=== PATIENT | male | born 1980 | race African-American/Black ===

== ENCOUNTER 2016-12-31 00:58 | Emergency (ER) | payer OTHER, SELFPAY ==
[2016-12-31 03:05] LABS: #Basophils 0.1 thou/uL (0.0-0.2); #Eosinphils 0.5 thou/uL (0.0-0.7); #Lymphocytes 1.8 thou/uL (1.20-3.40); #Monocytes 0.4 thou/uL (0.11-0.59); #Neutrophils 3.4 thou/uL (1.40-6.50); %Eosinophils 8.5 % (0.0-10.0); %Lymphocytes 29.2 % (21.0-51.0); Hematocrit 46.9 % (42.0-52.0); Mean Platelet Volume 8.2 fL (7.4-10.4); Red Blood Cell (RBC) Count 4.98 mill/uL (4.70-6.10); White Blood Cell (WBC) Count 6.2 thou/uL (4.8-10.8)
[2016-12-31 03:18] LABS: Bilirubin Negative (Negative); Blood, Urine Negative (Negative); Glucose, Urine (Dipstick) Negative (Negative); Ketone, Urine Negative (Negative); Nitrite Negative (Negative); Protein, Urine (Dipstick) Negative (Neg-Trace); Urobilinogen 0.2 mg/dL (0.2-1.0)
[2016-12-31 03:18] LABS: Acetaminophen Less than 6.0 mcg/mL (10.0-30.0); Salicylate Less than 8.0 mg/dL (15.0-30.0)
[2016-12-31 03:21] LABS: Bacteria/HPF None Seen HPF (None Seen); Hyaline Casts/LPF 0-3 HYALINE CAST LPF (0-3 Hyaline); RBC/HPF None Seen HPF (0-3); Squamous Epithelial None Seen HPF (0-3); WBC/HPF 0-3 HPF (0-3)
[2016-12-31 03:22] LABS: Troponin I Less than 0.010 ng/mL (< 0.028)
[2016-12-31 03:24] LABS: ALT (SGPT) 9 U/L (8-55); AST (SGOT) 12 U/L (5-34); Alkaline Phosphatase 53 U/L (40-150); Anion Gap 11 mmol/L (10-20); BUN (Urea Nitrogen) 10 mg/dL (8.9-20.6); Bilirubin, Total 1.2 mg/dL (0.2-1.2); CK (CPK) 93 U/L (30-200); Calc. Creatinine Clearance 0 mL/min (70-130); Calcium 8.8 mg/dL (7.8-10.44); Carbon Dioxide 25 mmol/L (22-29); Chloride 107 mmol/L (98-107); Estimated GFR-MDRD 87; Globulin 2.8 g/dL (2.4-3.5); Protein, Total 6.4 g/dL (6.0-8.3)
[2016-12-31 03:34] LABS: Methamphetamine Not Detected (NotDetected)
[2016-12-31 03:35] LABS: Amphetamine Not Detected (NotDetected); Methadone Not Detected (NotDetected)
--- NOTE | 2016-12-31 08:41 | RAD ---
RADIOGRAPH CHEST 1 VIEW: HISTORY: 36-year-old male with dizziness and near syncope. FINDINGS: The visualized lung suh are clear. The cardiomediastinal silhouette and hilar shadows are normal . The lateral costophrenic angles are sharp. The osseous structures appear normal. There is no pn eumothorax. IMPRESSION: Negative. maribell [] POS: [facility]
== END 2016-12-31 04:30 | disposition home or self-care (01) ==
LOC: ERS 00:58
DX: R42 Dizziness and giddiness (principal); F17.210 Nicotine dependence, cigarettes, uncomplicated
CPT/HCPCS: 36415; 71010; 80053; 80306; 80307; 81003; 81015; 82550; 82553; 84484; 85025; 93005

== ENCOUNTER 2018-01-23 10:33 | Emergency (ER) | payer SELFPAY | END 2018-01-23 11:08 | disposition home or self-care (01) | LOC: ERS 10:33 | DX: J02.9 Acute pharyngitis, unspecified (principal); F17.210 Nicotine dependence, cigarettes, uncomplicated | CPT/HCPCS: 99283 ==

== ENCOUNTER 2018-01-25 19:10 | Emergency (ER) | payer SELFPAY ==
[2018-01-25] MEDS ORDERED: Adacel (T-DAP) 0.5 ML VIAL ONE (20:15)
== END 2018-01-25 20:55 | disposition home or self-care (01) ==
LOC: ERS 19:10
DX: S01.111A Laceration without foreign body of right eyelid and periocular area, initial encounter (principal); S30.810A Abrasion of lower back and pelvis, initial encounter; F17.210 Nicotine dependence, cigarettes, uncomplicated; Z23 Encounter for immunization; W01.198A Fall on same level from slipping, tripping and stumbling with subsequent striking against other object, initial encounter
CPT/HCPCS: 12011; 90471; 90715